=== PATIENT | female | born 1960 | race Caucasian/White ===

== ENCOUNTER → 2020-04-18 14:13 | Outpatient (CLI) | payer MEDICAID, SELFPAY ==
[2020-04-18 15:06] LABS: Absolute Lymphocyte Count 3.57 X10^3/uL (0.83-4.51); Absolute Neutrophil Count 3.1 X10^3/uL (2.0-7.7); Basophil# 0.02 X10^3/uL; Basophil% 0.3 % (0-1); Eosinophil# 0.08 X10^3/uL; Eosinophils% 1.1 % (0-5); Hematocrit 45.9 % (37-47); Hemoglobin 15.2 g/dL (12.0-15.0); Lymphocyte # 3.57 X10^3/ul (4.0); Mean Corp Hgb Conc 33.1 g/dL (32-36); Mean Corpuscular Volume 93.7 fL (81-99); Mean Platelet Vol. 10.9 fl (6.2-12.0); Monocyte# 0.79 X10^3/uL; Monocyte% 10.4 % (0-10); NRBC Flagged by Analyzer 0 % (0-5); Neutrophil # 3.12 X10^3/uL (2.7-7.7); Neutrophil % 41.1 % (47-70); POSITIVE MORPHOLOGY YES; Platelet Count 294 K/mm3 (150-450); RBC Distribution Width CV 13.9 % (11.6-14.6); RBC Distribution Width SD 47.2 fl (35.1-43.9); White Blood Count 7.6 K/mm3 (4.4-11.0)
[2020-04-18 15:09] LABS: Differential Indicated SCAN CRITERIA MET
[2020-04-18 15:47] LABS: Anisocytosis RARE; Macrocytosis RARE; Platelet Estimate ADEQUATE (ADEQ); Red Cell Morphology N CHROM NORMAL (NORM C&C)
[2020-04-18 16:01] LABS: ALB/GLOB Ratio 0.8 RATIO (0.9-2.4); AST(SGOT) 59 U/L (15-37); Alanine Aminotransfer ALT/SGPT 71 U/L (13-56); Albumin, Serum 3.7 g/dL (3.2-5.0); Alkaline Phosphatase 95 U/L (45-117); Anion Gap 8 (5-15); BUN 12 mg/dL (7-18); BUN/Creat Ratio 14.7 RATIO (10-20); Calcium,Total 9.3 mg/dL (8.5-10.1); Chloride 102 mmol/L (98-107); Creatinine, Serum 0.82 mg/dL (0.55-1.02); EST Glomerular Filtration Rate 76 mL/min (>60); Est Glom Filt Rate - Afr Amer 92 mL/min (>60); Ferritin 217 ng/mL (8-252); Globulin 4.9 g/dL (2.2-4.2); Glucose 89 mg/dL (74-106); Potassium 3.7 mmol/L (3.5-5.1); Protein, Total 8.6 g/dL (6.4-8.2); Sodium Level 137 mmol/L (136-145)
== END ==
PROVIDERS: Referring Provider Dermatology Pediatric Dermatology; Visit Provider Dermatology Pediatric Dermatology
DX: L63.8 Other alopecia areata (principal)
CPT/HCPCS: 36415; 80053; 82728; 85025; 86038